=== PATIENT | male | born 2000 | race Two or more races ===

== ENCOUNTER 2018-10-26 16:22 | Emergency (ER) | payer OTHER ==
[~2018-10-26] VITALS: Ht 177.8 cm; Wt 102.0 kg
[2018-10-26 17:39] LABS: CHLORIDE 105 mEq/L (98-107)
[2018-10-26 17:40] LABS: BASOPHILS % 0.6 % (0.0-2.0); EOSINOPHILS % 0.2 % (0.0-5.0); HEMATOCRIT. 42.4 % (42.0-52.0); HEMOGLOBIN. 14.8 g/dL (14.0-18.0); LYMPHOCYTES % 19.6 % (20.0-50.0); MEAN CORPUSCULAR HEMOGLOBIN 29.8 pg (28.0-32.0); MEAN CORPUSCULAR VOLUME 85.6 fL (80.0-94.0); MEAN PLATELET VOLUME 7.5 fl (7.4-10.4); MONOCYTES % 8.4 % (2.0-8.0); NEUTROPHILS % 71.2 % (40.0-76.0); PLATELET 286 x1000/uL (130-400); RED BLOOD CELL COUNT 4.95 mill/uL (4.7-6.1); RED CELL DISTRIBUTION WIDTH 13.5 % (11.6-14.6)
[2018-10-26] MEDS ORDERED: POTASSIUM CHLORIDE 20MEQ TABLET SR PO NR (18:15)
[2018-10-26 18:40] VITALS: BP 145/94
== END 2018-10-26 19:00 | disposition home or self-care (01) ==
LOC: ER 16:22
DX: E87.6 Hypokalemia (principal); F41.0 Panic disorder [episodic paroxysmal anxiety]
CPT/HCPCS: 36415; 93005; 99284